=== PATIENT | female | born 2005 | race Hispanic/Latino ===

== ENCOUNTER 2025-01-23 20:44 | Emergency (ER) | payer SELFPAY ==
[~2025-01-23] VITALS: Ht 162.6 cm; Wt 77.1 kg
[2025-01-23] MEDS: ACETAMINOPHEN 325 MG TAB PO ONE (22:08)
[2025-01-23 22:11] LABS: CORONAVIRUS COVID-19 AG NEGATIVE (NEGATIVE); INFLUENZA A AG NEGATIVE (NEGATIVE); INFLUENZA B AG NEGATIVE (NEGATIVE)
[2025-01-23 22:46] VITALS: TEMP 99.9
[2025-01-23] MEDS ORDERED: DOXYCYCLINE HY100 MG PO (23:11)
[2025-01-23 23:14] VITALS: PULSE 115; RESP 17
[2025-01-23] MEDS: DOXYCYCLINE HYCLATE TABLET 100 MG TAB PO ONE (23:16)
[2025-01-23 23:53] VITALS: BP 116/75; PULSE 104; RESP 17; TEMP 99.4; O2SAT 98
== END 2025-01-23 23:56 | disposition home or self-care (01) ==
LOC: ER 21:44
DX: R50.9 Fever, unspecified (principal); J18.9 Pneumonia, unspecified organism; R05.9 Cough, unspecified; J45.909 Unspecified asthma, uncomplicated; Z11.52 Encounter for screening for COVID-19
CPT/HCPCS: 71045; 83518; 87070; 99283